=== PATIENT | male | born 1970 | race Caucasian/White ===

== ENCOUNTER 2016-05-20 09:05 | Inpatient (IN) | payer OTHER ==
[2016-05-20] MEDS ORDERED: diphenhydrAMINE 50 MG/ML 1 ML VIAL ONE (09:36)
[2016-05-20] MEDS ORDERED: fentaNYL (PF) 50 MCG/ML 2 ML AMP ONE (09:36)
[2016-05-20] MEDS ORDERED: HEPARIN SODIUM 1,000 UNIT/ML VIAL ONE (09:36)
[2016-05-20] MEDS ORDERED: VERAPAMIL 2.5 MG/ML 2 ML AMP ONE (09:36)
[2016-05-20] MEDS ORDERED: SODIUM CHLORIDE 0.9% (PF) 10 ML VIAL ONE (09:36)
[2016-05-20] MEDS ORDERED: SODIUM CHLORIDE 0.9% 1,000 ML IV ONE (09:40)
[2016-05-20] MEDS ORDERED: LIDOCAINE 2% INJ 20 MG/ML SQ ONE (09:45)
[2016-05-20] MEDS ORDERED: diphenhydrAMINE 50 MG/ML 1 ML VIAL IVP ONE (09:46)
[2016-05-20] MEDS ORDERED: BIVALIRUDIN BOLUS 250 MG/50 ML IV ONE (09:48)
[2016-05-20] MEDS ORDERED: VERAPAMIL SYRINGE (5 MG/10 ML) INTRAARTER ONE (09:50)
[2016-05-20] MEDS ORDERED: PRASUGREL 10 MG TAB ONE (09:50)
[2016-05-20] MEDS ORDERED: BIVALIRUDIN 250 MG in SODIUM CHLORIDE 0.9% 50 ML IV ONE (09:50)
[2016-05-20] MEDS ORDERED: PRASUGREL 10 MG TAB PO ONE (09:50)
[2016-05-20] MEDS ORDERED: fentaNYL (PF) 50 MCG/ML 2 ML AMP IV ONE (09:50)
--- NOTE | 2016-05-20 10:16 | CONS ---
DATE OF CONSULTATION: Mr. Mendez is a 45-year-old male with history of chronic tobacco use, a prior history of smoking, who presented to the emergency room at [facility] with symptoms of chest discomfort. The discomfort woke him up from sleep around 4:00 and reoccurred quite severe on presentation. On presentation to the emergency room, his EKG was consistent with an acute inferior myocardial infarction. In view of that, he was transferred to [facility] to undergo cardiac catheterization. Patient has no prior cardiac history. He is usually active physically. He has no exertional chest pain. He has no dizziness. No palpitation. No syncope. No PND, orthopnea nor peripheral edema. His coronary risk factors are remarkable for chronic tobacco use and a prior history of hypertension. MEDICATIONS: None. SOCIAL HISTORY: He drinks alcohol once a week. Smokes. REVIEW OF SYSTEMS: RESPIRATORY SYSTEM: No recent wheezing. No cough. No history of obstructive lung disease. GI SYSTEM: No recent GI bleeding. No peptic ulcer disease. SYSTEM: No dysuria or hematuria. PHYSICAL EXAMINATION: He is a 45-year-old male, alert, oriented, in no apparent distress. Blood pressure 140/70 with the heart rate in the 80s. HEAD: Normocephalic. EYES: Sclerae anicteric. NECK: Good upstroke. No bruit. No jugular venous distention. LUNGS: Clear to auscultation. HEART: Regular rate and rhythm. S1, S2, no S3, no rub or gallop. ABDOMEN: Soft, nontender, positive bowel sounds. No organomegaly. EXTREMITIES: No edema. EKG reveals sinus mechanism with ST segment elevation in inferior leads with ST segment depression in lead I and aVL and mild depression in lead V2. IMPRESSION: 1. Acute inferior myocardial infarction, ST elevation. 2. Hypertension in the past. 3.History of smoking. RECOMMENDATIONS: I recommend proceeding with coronary angiography and coronary angioplasty and stenting as needed. Those findings and recommendations were discussed with the patient who is in full understanding and agreement. Thank you for this consult. We will follow with you. ANA PAULA
[2016-05-20] MEDS ORDERED: IODIXANOL 320 MG/ML 100 ML INTRAARTER ONE (10:20)
[2016-05-20] MEDS ORDERED: ATROPINE SULFATE 0.1 MG/ML 10ML SYRINGE IV PRN (10:28)
[2016-05-20] MEDS ORDERED: MAG HYDROX/AL HYDROX/SIMETH 30 ML CUP PO PRN (10:28)
[2016-05-20] MEDS ORDERED: NITROGLYCERIN SL TABS 0.4 MG TAB SUBLINGUAL PRN (10:28)
[2016-05-20] MEDS ORDERED: ZOLPIDEM 5 MG TAB PO PRN (10:28)
[2016-05-20] MEDS ORDERED: RX INFO: IV CONTRAST WAS GIVEN 1 EACH MISC MISCELLANE PRN (10:28)
[2016-05-20] MEDS ORDERED: SODIUM CHLORIDE 0.9% 1,000 ML IV SCH (10:30)
[2016-05-20 10:45] LABS: Glucose,Whole Blood 102 mg/dL (75-99)
[2016-05-20] MEDS ORDERED: METOPROLOL TARTRATE 25 MG TAB PO SCH (10:45)
[2016-05-20] MEDS: LISINOPRIL 5 MG TAB PO SCH ×2 (10:59→20:50)
[2016-05-20 11:37] VITALS: BMI 31.3
[2016-05-20] MEDS ORDERED: METOPROLOL TARTRATE 25 MG TAB PO STA (12:43)
[2016-05-20] MEDS ORDERED: DEXTROSE 5% IN WATER 250 ML with AMIODARONE 300 MG IV ONE (15:00)
[2016-05-20] MEDS ORDERED: Magnesium Replacement Protocol 1 EACH MISC MISCELLANE PRN (15:44)
[2016-05-20] MEDS: MAGNESIUM SULFATE-D5W PMX 1 GM in DEXTROSE/WATER 1 100ML.BAG IVPB SCH ×2 (16:16→18:12)
--- NOTE | 2016-05-20 16:44 | HP ---
DATE OF ADMISSION: 05/20/2016 PRESENTING COMPLAINT: Chest pain. HISTORY OF PRESENTING COMPLAINT: This is a 45-year-old patient of Dr. Kerns who has a prior history of hypertension but did well with that control, went off medications. Had a ( ) this morning presented with central chest pressure, lasted about two hours. There was some shortness of breath, perspiration, then went back to sleep, got up again and the pain kept again. The patient became pale this time, getting short of breath, perspiration and dizzy. The patient presented to [facility] ER. The patient found to have ST elevation myocardial infarction and transferred down here. Taken to the cardiac clinical laboratory medical director by Dr. Harvey. Two stents to the right coronary artery were placed. Patient currently symptom free. The patient had some runs of whit may look like possible the shorter runs of V. tach versus atrial fibrillation. Awaiting Dr. Farrar did see the patient this morning. Family at the bedside. REVIEW OF SYSTEMS: CONSTITUTIONAL: Tired. HEENT: None. RESPIRATORY: None. CARDIOVASCULAR: As above. GASTROINTESTINAL: None. GENITOURINARY: None. MUSCULOSKELETAL: None. Dermatologic: None. HEMATOLOGIC: None. LYMPHATIC: None. PSYCHIATRY: None. NEUROLOGICAL: None. PAST MEDICAL HISTORY: Past medical history of hypertension. PAST SURGICAL HISTORY: Appendectomy, and nasal septal surgery. SOCIAL HISTORY: The patient is a ( ) at [employer]. Smokes sometimes. Drinks about 12 beers a week. . FAMILY HISTORY: Diabetes and hypertension. HOME MEDICATIONS: None. ALLERGIES: None. On examination, temperature 98.1, pulse 91%, respiratory rate 25, blood pressure 156/107, pulse ox 98% on 2 liters. GENERAL APPEARANCE: Average build, sitting up, comfortable. EYES: Pupils equal. Conjunctivae normal. HEENT: External appearance of nose and ears normal. Oral cavity normal. NECK: JVD not raised. Mass not palpable. RESPIRATORY: Effort normal. Lungs are clear. CARDIOVASCULAR: First and second sounds normal. No edema. ABDOMEN: Soft, nontender. Liver and spleen not palpable. LYMPHATIC: No lymph nodes palpable in neck or axillae. PSYCHIATRY: Alert and oriented x3. Mood and affect normal. NEUROLOGICAL: Pupils equal. Cranial nerves grossly intact. Power and sensation grossly intact. INVESTIGATIONS: Glucose 102. ASSESSMENT: 1. Acute ST elevation myocardial infarction 2. Emergent cardiac catheterization with two stents to the RCA. 3. Essential hypertension, uncontrolled. 4. Possible paroxysmal atrial fibrillation. PLAN: Patient to continue aspirin and Lipitor, Amidarone, Zestril, Lopressor, Effient. Care was discussed with the patient. Questions were answered. Follow with cardiology.
--- NOTE | 2016-05-20 19:24 | CC ---
Mr. Mendez is a 45-year-old male with known history of chronic tobacco use, prior history of smoking, who presented to [facility] with an acute inferior myocardial infarction. He was transferred to [facility] and recommendation made regarding cardiac catheterization and coronary angioplasty and stenting if needed. The procedure as well as the risks and complications were discussed with the patient, who is in full understanding and agreement. PROCEDURE: Patient was brought to the slab tripper. Using Xylocaine anesthesia and Seldinger technique, a 6 British sheath was introduced in the right radial artery. A right coronary angiography was performed using 6 British 4 bend right Darion guiding catheter. After obtaining images of the right coronary artery and performing angioplasty and stenting, images of the left coronary system using a 5 British 3-1/2 Bend left Darion catheter was used. Following that, a 5 British tight pigtail catheter was introduced in the left ventricle and a 30 degree THOMAS view of the left ventricle was obtained. Following that, catheter and sheaths were removed. Hemostasis was obtained with a ( ) TR band. There were no immediate complications. Patient was returned to his room in stable condition. Of note, the patient received intra-arterial verapamil. FINDINGS: Left main: This is a short-sized vessel bifurcating into left circumflex and left anterior descending artery. Left main coronary artery is without any significant obstructive coronary artery disease. Left anterior descending artery: This is a large-size vessel reaching toward the apex with a wraparound apex segment. The left anterior descending artery gives rise to a large obtuse marginal branch in mid segment. After takeoff of the obtuse marginal branch, there is a 20% plaque. The rest of the vessel has no high-grade stenosis. Left circumflex: This is a nondominant vessel, large in caliber, giving rise to 2 obtuse marginal branches. The left circumflex as well as its branches has no evidence of obstructive coronary artery disease. Right coronary artery: This is a large dominant vessel, bifurcating distally into PDA and posterolateral segment and branches. The right coronary artery proximally has a 99% stenosis. There is a long segment of plaque and evidence of intracoronary thrombus. The PLV has a 40% to 50% plaque. The rest of the vessel has no high-grade stenosis. LEFT VENTRICULOGRAM: Left ventriculogram was performed in 30 degree THOMAS view and revealed mild inferior wall hypokinesis. The estimated ejection fraction 50%. There was no significant mitral regurgitation. HEMODYNAMICS: There was no gradient across the aortic valve. The left ventricular end-diastolic pressure was 16 to 18 mmHg. CONCLUSIONS: 1. 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 2. Mild disease in the mid left anterior descending. 3. Minimally impaired left ventricular systolic function. RECOMMENDATIONS: In view findings and anatomy, I have recommended undergo angioplasty and stenting of the right coronary artery. The procedure as well as risks and complications were discussed with the patient, who is in full understanding and agreement.
--- NOTE | 2016-05-20 19:35 | PTCA ---
Mr. Mendez is a 45-year-old male with no prior documented history of coronary artery disease, who presented to the emergency room at [facility] with an acute inferior myocardial infarction, underwent cardiac catheterization, was found to have a critical stenosis involving a long segment of the proximal right coronary artery. In view of that, recommendation was made regarding angioplasty and stenting. The procedure as well as the risks and complications were discussed with the patient, who is in full understanding and agreement. PROCEDURE: Using the 6 Marshallese FR4 guiding catheter after obtaining images of the right coronary artery, a 0.014 balanced medium weight J-wire was advanced across the lesion, positioned distally. Following that, a thrombectomy [place] catheter was introduced. One run was performed. Following that and after removing the catheter, a 3.5 x 28 mm Xience Alpine stent was deployed, postdilated at 14 atmospheres. After removing the balloon, a 4.0 x 12 mm Xience Alpine stent was deployed proximal to the first one, postdilated at 14 atmospheres. Following that, an inflation with the same balloon in the first stent was performed at a maximum of 12 atmospheres. After the last inflation, after appropriate wait, the balloon and the guidewire were withdrawn back in the guiding catheter. Images were obtained and repeated. Those images reveal stable successful stenting. At that point, the guiding catheter, the balloon and the guidewire wire were removed. Images of the left coronary system and left ventriculogram were performed. Following that, catheter and sheaths were removed. Hemostasis was obtained with deployment of a TR band. There were no immediate complications. Patient is returned to his room in stable condition. Of note, the patient received Angiomax per protocol as well as oral loading dose of Effient. He had no chest discomfort at the end of the procedure and his EKG changes have returned to baseline. RESULT: Successful stenting of the long segment of the proximal right coronary artery with reduction in stenosis from 99% to 0%. RECOMMENDATION: Patient will be continued on aspirin and Plavix, Effient, beta sarabjit, BHAVANI inhibitor and statin. The importance of dual antiplatelet treatment as well as smoking cessation was discussed with the patient and his family, who are in full understanding and agreement.
--- NOTE | 2016-05-20 19:37 | LTR ---
May 20, 2016 RE: Thang Mendez Dear Dr. Kerns: I had the pleasure of performing cardiac catheterization with coronary angioplasty and stenting on Mr. Mendez at [facility] on the 20 of May and a full copy of the procedure note will be forwarded to you. In brief, he was found to have subtotally occluded proximal right coronary artery and underwent successful stenting of that vessel using a drug-eluting stent. I am hopeful that this procedure will stabilize his status and thank you again for allowing me to participate in his care. Please feel free to call for any questions. Sincerely yours, MATTHEW DUVAL MD
[2016-05-20] MEDS: ATORVASTATIN 80 MG TAB PO SCH (20:50)
[2016-05-20] MEDS: METOPROLOL TARTRATE 50 MG TAB PO SCH (20:50)
[2016-05-21 04:53] LABS: Anion Gap 8 mmol/L; Blood Urea Nitrogen 11 mg/dL (9-20); Calcium 8.7 mg/dL (8.4-10.2); Carbon Dioxide 23 mmol/L (22-30); Chloride 108 mmol/L (98-107); Cholesterol 219 mg/dL (<200); Glucose 98 mg/dL (74-99); HDL Cholesterol 43 mg/dL (40-60); Magnesium 2.1 mg/dL (1.6-2.3); Non-African American GFR(MDRD) >60 (>60 ml/min/1.73 sqM); Potassium 4.3 mmol/L (3.5-5.1); Sodium 139 mmol/L (137-145); Triglycerides 382 mg/dL (<150)
[2016-05-21] MEDS: ASPIRIN 81 MG CHEW PO SCH (08:09)
[2016-05-21] MEDS: LISINOPRIL 5 MG TAB PO SCH (08:09)
[2016-05-21] MEDS: PRASUGREL 10 MG TAB PO SCH (08:09)
[2016-05-21] MEDS: METOPROLOL TARTRATE 50 MG TAB PO SCH (08:09)
[2016-05-21] MEDS ORDERED: LISINOPRIL 5 MG TAB PO STA (08:44)
[2016-05-21] MEDS ORDERED: METOPROLOL TARTRATE 25 MG TAB PO STA (08:46)
[2016-05-21] MEDS ORDERED: CARVEDILOL 6.25 MG TAB PO STA (14:13)
--- NOTE | 2016-05-21 15:52 | PN ---
Mr. Mendez is a 45-year-old male patient who was admitted with an acute myocardial infarction yesterday at [facility] and then subsequently transferred here with inferior wall MS and he underwent coronary stenting by Dr. Harvey. There was a subtotally occluded proximal RCA and it was a fairly long segment of disease. There was mild disease in the mid LAD and a minimally impaired LV systolic function. Coronary stenting was performed with a Xience stent. Subsequently, when he is doing fairly well. Yesterday, he had a long run of nonsustained ventricular tachycardia. He received 300 mg of IV amiodarone, but none subsequently. We have been increasing his beta blockers since then. He is resting comfortably in bed. He has no headache. No blurring of vision. No chest discomfort. No shortness of breath. His blood pressure is elevated, but ( ) his diastolic blood pressure and despite that we have been going up on his medications. He does have a history of hypertension. Head and neck examination is normal. Heart sounds S1, S2 are normal. No murmurs, no gallop, no rub. Breath sounds are normal. No rhonchi. No crackles. Extremities are warm. No edema. IMPRESSION: 1. Acute inferior wall myocardial infarction, status post coronary stenting to the proximal right coronary artery. 2. Hypertension, systolic as well as diastolic. 3. History of smoking. SUGGEST: Switch from metoprolol to carvedilol 12.5 mg twice daily. I will give him an extra dose of 6.25 mg at this time. Continue lisinopril 10 mg b.i.d. Continue Effient, aspirin and atorvastatin. No more amiodarone for now. He has not had any further ventricular arrhythmias.
[2016-05-21] MEDS ORDERED: LISINOPRIL 10 MG TAB PO STA (16:40)
[2016-05-21] MEDS: ATORVASTATIN 80 MG TAB PO SCH (20:17)
[2016-05-21] MEDS: CARVEDILOL 12.5 MG TAB PO SCH (20:18)
[2016-05-21] MEDS: LISINOPRIL 20 MG TAB PO SCH (20:18)
[2016-05-21] MEDS ORDERED: METOPROLOL TARTRATE 25 MG TAB PO SCH (21:00)
[2016-05-21] MEDS ORDERED: LISINOPRIL 10 MG TAB PO SCH (21:00)
[2016-05-22 04:47] LABS: Basophils % (A) 1 %; CH 31.6; Eosinophils # (A) 0.1 k/uL (0-0.7); Eosinophils % (A) 2 %; HCT 47.2 % (39.0-53.0); HDW 2.66; HGB 15.9 gm/dL (13.0-17.5); Luc # (Auto) 0.15; Luc % (Auto) 2; Lymphocytes # (A) 2.6 k/uL (1.0-4.8); Lymphocytes % (A) 32 %; MCH 30.4 pg (25.0-35.0); MCHC 33.6 g/dL (31.0-37.0); MCV 90.6 fL (80.0-100.0); Mean Platelet Volume 7.8; Monocytes # (A) 0.5 k/uL (0-1.0); Monocytes % (A) 6 %; Neutrophils # (A) 4.7 k/uL (1.3-7.7); Neutrophils % (A) 58 %; RBC 5.21 m/uL (4.30-5.90); RDW 12.9 % (11.5-15.5); WBC 8.1 k/uL (3.8-10.6); WBC (Perox) 7.97
[2016-05-22 05:03] LABS: Anion Gap 11 mmol/L; Blood Urea Nitrogen 13 mg/dL (9-20); Calcium 8.8 mg/dL (8.4-10.2); Carbon Dioxide 22 mmol/L (22-30); Chloride 107 mmol/L (98-107); Glucose 95 mg/dL (74-99); Non-African American GFR(MDRD) >60 (>60 ml/min/1.73 sqM); Potassium 4.2 mmol/L (3.5-5.1); Sodium 140 mmol/L (137-145)
[2016-05-22] MEDS: ASPIRIN 81 MG CHEW PO SCH (08:31)
[2016-05-22] MEDS: LISINOPRIL 20 MG TAB PO SCH (08:31)
[2016-05-22] MEDS: PRASUGREL 10 MG TAB PO SCH (08:31)
[2016-05-22] MEDS: CARVEDILOL 12.5 MG TAB PO SCH (08:31)
--- NOTE | 2016-05-22 10:36 | ECHOF ---
Referral Reason:or MEASUREMENTS -------- HEIGHT: 188.0 cm WEIGHT: 108.0 kg BP: 123/81 RVIDd: 2.7 cm (< 3.3) IVSd: 1.2 cm (0.6 - 1.1) LVIDd: 4.8 cm (3.9 - 5.3) LVPWd: 1.2 cm (0.6 - 1.1) IVSs: 1.8 cm LVIDs: 3.0 cm LVPWs: 1.6 cm LA Diam: 3.7 cm (2.7 - 3.8) Ao Diam: 3.9 cm (2.0 - 3.7) AV Cusp: 2.4 cm (1.5 - 2.6) MV EXCURSION: 19.783 mm (> 18.000) MV EF SLOPE: 79 mm/s (70 - 150) EPSS: 0.3 cm MV E Dax: 0.81 m/s MV DecT: 188 ms MV A Dax: 0.76 m/s MV E/A Ratio: 1.05 FINDINGS -------- Sinus rhythm. This was a technically good study. The left ventricular size is normal. There is borderline concentric left ventricular hypertrophy. Overall left ventricular systolic function is normal with, an EF between 60 - 65 %. The right ventricle is normal in size and function. The left atrium is normal in size. The right atrium is normal in size. The aortic valve is trileaflet and appears structurally normal. Normal appearing mitral valve. No mitral regurgitation. The tricuspid valve appears structurally normal. No regurgitation noted The pulmonic valve is normal. There is no pulmonic regurgitation present. The aortic root is dilated measuring 3.9cm. Normal inferior vena cava with normal inspiratory collapse consistent with estimated right atrial pressure of 5 mmHg. There is no pericardial effusion. CONCLUSIONS -------- 1. Sinus rhythm. 2. Normal appearing mitral valve. 3. The tricuspid valve appears structurally normal. 4. The pulmonic valve is normal. 5. The aortic root is dilated measuring 3.9cm. 6. Normal inferior vena cava with normal inspiratory collapse consistent with estimated right atrial pressure of 5 mmHg. 7. There is no pericardial effusion. 8. This was a technically good study. 9. The left ventricular size is normal. 10. There is borderline concentric left ventricular hypertrophy. 11. Overall left ventricular systolic function is normal with, an EF between 60 - 65 %. 12. The right ventricle is normal in size and function. 13. The left atrium is normal in size. 14. The right atrium is normal in size. 15. The aortic valve is trileaflet and appears structurally normal. PONY ROUGHER: Jannet Granados RDCS
--- NOTE | 2016-05-22 12:02 | PN ---
DATE OF SERVICE: 05/21/2016 PRESENTING COMPLAINT: Chest pain. INTERVAL HISTORY: This patient presented with acute ST elevation myocardial infarction with intervention of the RCA, blood pressure is running high. Dr. Farrar is adjusting the medications. No chest pain, short of breath. Family is at the bedside. Patient was admitted to the ICU, from the 6 East floor. Review of systems done for constitutional, cardiovascular, GI, pulmonary; relevant findings as above. Current medications are reviewed and include Coreg 12.5 b.i.d., Zestril 20 mg b.i.d. On examination, temperature 97.7, pulse 73, respirations 14, blood pressure 150/91, pulse ox 98% on room air. GENERAL APPEARANCE: Lying in bed, comfortable. EYES: Pupils equal. Conjunctivae normal. NECK: JVD not raised. Mass not palpable. Respiratory effort normal. Lungs are clear. CARDIOVASCULAR: First and second sounds normal. No edema. ABDOMEN: Soft, nontender. Liver and spleen not palpable. PSYCHIATRY: Alert and oriented x3. Mood and affect normal. INVESTIGATIONS: LDL is 100. ASSESSMENT: 1. Acute ST-elevation myocardial infarction of the inferior wall. 2. Emergent cardiac catheterization with two stents to the right coronary artery. 3. Essential hypertension, uncontrolled. 4. Runs of ventricular tachycardia, not atrial fibrillation per Cardiology. 5. Hyperlipidemia, uncontrolled. PLAN: Medications were adjusted. Care was discussed with the patient and family at the bedside. Will follow.
[2016-05-22 12:42] VITALS: TEMP 98.6
[2016-05-22 17:14] VITALS: BP 178/108
--- NOTE | 2016-05-22 17:19 | PN ---
Thang is doing very well this morning. He has no headache, no chest pain, no dizziness, lightheadedness or palpitations. His blood pressure is a lot better than yesterday, although it is still not completely under control. But now he is on carvedilol and lisinopril. His blood pressure was 123/81 mmHg and 157/99 mmHg. His heart rate is normal in the 80s. His respirations are normal. Heart sounds S1, S2 are normal. No murmurs. No gallop. Breath sounds are normal. No rhonchi. No crackles. Abdomen is soft, nontender. Extremities are warm. No edema. His medication list includes: 1. Aspirin. 2. Atorvastatin. 3. Carvedilol 12.5 mg twice daily. 4. Lisinopril 20 mg twice daily. 5. Effient. He will be discharged home today. He will follow with Dr. Harvey this week. FINAL IMPRESSION: 1. Acute inferior wall myocardial infarction, status post stenting. 2. Hypertension. He will see Dr. Harvey this week ( ) his blood pressure is elevated, hydrochlorothiazide will be added to his current regimen.
[2016-05-22 17:40] VITALS: RESP 19
[2016-05-22 17:45] VITALS: PULSE 84
--- NOTE | 2016-05-23 10:47 | DS ---
DATE OF ADMISSION: 05/20/2016 DATE OF DISCHARGE: 05/22/2016 FINAL DIAGNOSES: 1. Acute ST-elevation myocardial infarction of the inferior wall. 2. Essential hypertension, uncontrolled. 3. Paroxysmal ventricular tachycardia. 4. Hyperlipidemia, uncontrolled. 5. Hypertensive heart disease; ejection fraction 60% to 65%. HOSPITAL COURSE: This patient presented with acute AL, doing better at the time of discharge, up and about, symptoms are controlled. Patient's LDL came back at 100. A 2-D echo showed preserved LV function. Dr. Harvey did the coronary intervention with stenting of the proximal RCA. When last examined, lungs are clear. CARDIOVASCULAR: First and second sounds normal. DISCHARGE MEDICATIONS: 1. Aspirin 81 mg a day. 2. Lipitor 80 mg q.h.s. 3. Coreg 12.5 p.o. b.i.d. 4. Zestril 20 mg b.i.d. 5. Nitrostat 0.4 sublingual q.5 p.r.n. 6. Effient 10 mg a day. Follow up with Dr. Harvey in one week; follow up with Dr. Kerns in one week.
== END 2016-05-22 17:58 | disposition home or self-care (01) | DRG 247 ==
LOC: 6SEL 09:22 → 6ICU 10:19
PROVIDERS: ADMIT Internal Medicine Interventional Cardiology; ATTEND Hospitalist
PROC: B2111ZZ Fluoroscopy of Multiple Coronary Arteries using Low Osmolar Contrast (ICD-10-PCS; principal; 2016-05-20 09:32)
PROC: 4A023N7 Measurement of Cardiac Sampling and Pressure, Left Heart, Percutaneous Approach (ICD-10-PCS; principal; 2016-05-20 09:32)
PROC: B2151ZZ Fluoroscopy of Left Heart using Low Osmolar Contrast (ICD-10-PCS; principal; 2016-05-20 09:32)
PROC: 027034Z Dilation of Coronary Artery, One Artery with Drug-eluting Intraluminal Device, Percutaneous Approach (ICD-10-PCS; 2016-05-20 09:32)
PROC: 02C03ZZ Extirpation of Matter from Coronary Artery, One Artery, Percutaneous Approach (ICD-10-PCS; 2016-05-20 09:32)
DX: I21.19 ST elevation (STEMI) myocardial infarction involving other coronary artery of inferior wall (principal); I47.2 Ventricular tachycardia; I11.9 Hypertensive heart disease without heart failure; E78.5 Hyperlipidemia, unspecified; Z79.899 Other long term (current) drug therapy; Z82.49 Family history of ischemic heart disease and other diseases of the circulatory system; I25.10 Atherosclerotic heart disease of native coronary artery without angina pectoris; F17.200 Nicotine dependence, unspecified, uncomplicated
CPT/HCPCS: 80048; 80061; 83735; 84484; 85025; 85347; 93306; 93458

== ENCOUNTER 2016-10-06 06:02 | Emergency (ER) | payer OTHER ==
[2016-10-06] MEDS ORDERED: MORPHINE SULFATE 4 MG/ML SYRINGE IVP STA (06:14)
[2016-10-06] MEDS ORDERED: KETOROLAC 30 MG/ML 1 ML VIAL IVP STA (06:14)
[2016-10-06] MEDS ORDERED: SODIUM CHLORIDE 0.9% 1,000 ML IV ONE (06:14)
[2016-10-06 06:45] LABS: Basophils % (A) 0 %; CH 32.4; CHCM 34.6; Eosinophils # (A) 0.2 k/uL (0-0.7); Eosinophils % (A) 1 %; HCT 51.2 % (39.0-53.0); HDW 2.51; HGB 17.1 gm/dL (13.0-17.5); Luc # (Auto) 0.13; Luc % (Auto) 1; Lymphocytes # (A) 1.8 k/uL (1.0-4.8); Lymphocytes % (A) 17 %; MCH 31.4 pg (25.0-35.0); MCHC 33.4 g/dL (31.0-37.0); Mean Platelet Volume 7.8; Monocytes # (A) 0.5 k/uL (0-1.0); Monocytes % (A) 5 %; Neutrophils # (A) 8.2 k/uL (1.3-7.7); Neutrophils % (A) 76 %; RBC 5.45 m/uL (4.30-5.90); WBC 10.9 k/uL (3.8-10.6); WBC (Perox) 10.62
--- NOTE | 2016-10-06 06:51 | ED ---
Abdominal Pain HPI - General Source: patient Mode of arrival: ambulatory Limitations: no limitations <Derick Delcid - Last Filed: 10/06/16 07:03> <Hector Javed - Last Filed: 10/06/16 08:50> - General Chief Complaint: Abdominal Pain Stated Complaint: abd pain Time Seen by Provider: 10/06/16 06:09 - History of Present Illness Initial Comments: This is a 46-year-old male with a history of STEMI who presents emergency department for left lower quadrant and left flank pain. He states that it started when he woke up this morning and gradually worsened. He states the pain is severe. He has never had anything like it before. He does have some nausea however no vomiting. No diarrhea. He denies history kidney stones. Nothing seems to make it better or worse. It is constant. (Derick Delcid) - Related Data Home Medications Medication Instructions Recorded Confirmed Prasugrel [Effient] 10 mg PO HS 10/06/16 10/06/16 Previous Rx's Medication Instructions Recorded Aspirin 81 mg PO DAILY #30 chew 05/22/16 Atorvastatin [Lipitor] 80 mg PO HS #30 tab 05/22/16 Carvedilol [Coreg*] 12.5 mg PO BID #60 tab 05/22/16 Nitroglycerin Sl Tabs [Nitrostat] 0.4 mg SUBLINGUAL Q5M PRN #25 tab 05/22/16 Hydrocodone/Acetaminophen [Pigeon 2 each PO Q6HR PRN #20 tab 10/06/16 5-325] Metoclopramide HCl [Reglan] 10 mg PO Q6HR PRN #15 tablet 10/06/16 Tamsulosin [Flomax] 0.4 mg PO DAILY #7 cap 10/06/16 Allergies Allergy/AdvReac Type Severity Reaction Status Date / Time No Known Allergies Allergy Verified 10/06/16 07:26 Review of Systems ROS Other: All systems not noted in ROS Statement are negative. <Derick Delcid - Last Filed: 10/06/16 07:03> ROS Other: All systems not noted in ROS Statement are negative. <Hector Javed - Last Filed: 10/06/16 08:50> ROS Statement: Those systems with pertinent positive or pertinent negative responses have been documented in the HPI. Past Medical History Past Medical History: Coronary Artery Disease (CAD), Chest Pain / Angina, Hypertension, Myocardial Infarction ([place]) Last Myocardial Infarction Date:: 05/20/16 History of Any Multi-Drug Resistant Organisms: None Reported Past Surgical History: Appendectomy, Heart Catheterization, Heart Catheterization With Stent, Orthopedic Surgery Additional Past Surgical History / Comment(s): nasal septal surgery Past Anesthesia/Blood Transfusion Reactions: No Reported Reaction Date of Last Stent Placement:: 05/20/16 Past Psychological History: No Psychological Hx Reported Smoking Status: Light tobacco smoker - Past Family History Father History Unknown: Yes Family Medical History: Diabetes Mellitus, Hypertension <Derick Delcid - Last Filed: 10/06/16 07:03> General Exam Limitations: no limitations <Derick Delcid - Last Filed: 10/06/16 07:03> <Hector Javed - Last Filed: 10/06/16 08:50> - General Exam Comments Initial Comments: Constitutional: Awake alert appears uncomfortable Head: Normocephalic atraumatic Eyes: no conjunctival injection No scleral icterus EOMI Neck: No JVD Supple Heart: Regular rate rhythm normal S1-S2 no murmurs Lungs: Clear to auscultation bilaterally No wheezing No rales Abdomen: Soft nondistended tenderness to palpation the left lower quadrant Extremities: Non edematous DP pulses intact Radial pulses intact Neuro: A&Ox3 No focal neurologic deficits Psych: Appropriate mood and affect (Derick Delcid) Course <Derick Delcid - Last Filed: 10/06/16 07:03> <Hector Javed - Last Filed: 10/06/16 08:50> Vital Signs 10/06/16 10/06/16 10/06/16 06:09 06:44 07:13 Temperature 97.7 F 98 F Pulse Rate 77 64 83 Respiratory 18 16 18 Rate Blood Pressure 201/123 193/114 177/121 O2 Sat by Pulse 100 100 99 Oximetry 10/06/16 10/06/16 07:37 08:00 Temperature Pulse Rate 75 80 Respiratory 18 18 Rate Blood Pressure 158/105 164/111 O2 Sat by Pulse 99 97 Oximetry - Reevaluation(s) Reevaluation #1: 10/06/16 06:50 EKG showing normal sinus rhythm with rate of 63. No abnormal ST segment changes or T-wave inversions. QTC is 417. Other intervals are normal. No ectopy. (Dreick Delcid) Medical Decision Making - Lab Data Result diagrams: 10/06/16 06:35 <Derick Delcid - Last Filed: 10/06/16 07:03> - Lab Data Result diagrams: 10/06/16 06:35 10/06/16 06:35 - Radiology Data Radiology results: report reviewed (Computed tomography scan of the abdomen and pelvis shows 0.6 cm left mid ureter stone with mild hydronephrosis and hydroureter.) <Hector Javed - Last Filed: 10/06/16 08:50> - Medical Decision Making Pts care transitioned to Dr. Javed (Derick Delcid) Patient reexamined and improved. Patient updated on results and need for follow -up. Blood pressure is also improved. (Hector Javed) - Lab Data Lab Results 10/06/16 10/06/16 10/06/16 Range/Units 06:35 06:35 07:15 WBC 10.9 H (3.8-10.6) k/uL RBC 5.45 (4.30-5.90) m/uL Hgb 17.1 (13.0-17.5) gm/dL Hct 51.2 (39.0-53.0) % MCV 94.0 (80.0-100.0) fL MCH 31.4 (25.0-35.0) pg MCHC 33.4 (31.0-37.0) g/dL RDW 13.0 (11.5-15.5) % Plt Count 221 (150-450) k/uL Neutrophils % 76 % Lymphocytes % 17 % Monocytes % 5 % Eosinophils % 1 % Basophils % 0 % Neutrophils # 8.2 H (1.3-7.7) k/uL Lymphocytes # 1.8 (1.0-4.8) k/uL Monocytes # 0.5 (0-1.0) k/uL Eosinophils # 0.2 (0-0.7) k/uL Basophils # 0.0 (0-0.2) k/uL Sodium 143 (137-145) mmol/L Potassium 4.6 (3.5-5.1) mmol/L Chloride 109 H (98-107) mmol/L Carbon Dioxide 22 (22-30) mmol/L Anion Gap 12 mmol/L BUN 23 H (9-20) mg/dL Creatinine 0.98 (0.66-1.25) mg/dL Est GFR (MDRD) Af Amer >60 (>60 ml/min/1.73 sqM) Est GFR (MDRD) Non-Af >60 (>60 ml/min/1.73 sqM) Glucose 105 H (74-99) mg/dL Calcium 9.3 (8.4-10.2) mg/dL Total Bilirubin 0.9 (0.2-1.3) mg/dL AST 30 (17-59) U/L ALT 51 (21-72) U/L Alkaline Phosphatase 49 (38-126) U/L Total Protein 7.9 (6.3-8.2) g/dL Albumin 4.7 (3.5-5.0) g/dL Urine Color Light Red Urine Appearance Cloudy (Clear) Urine pH 5.5 (5.0-8.0) Ur Specific [place] 1.020 (1.001-1.035) Urine Protein 1+ H (Negative) Urine Glucose (UA) Negative (Negative) Urine Ketones Negative (Negative) Urine Blood Large H (Negative) Urine Nitrite Negative (Negative) Urine Bilirubin Negative (Negative) Urine Urobilinogen <2.0 (<2.0) mg/dL Ur Leukocyte Esterase Negative (Negative) Urine RBC >182 H (0-5) /hpf Urine WBC 20 H (0-5) /hpf Urine Mucus Rare H (None) /hpf Disposition <Derick Delcid - Last Filed: 10/06/16 07:03> Time of Disposition: 08:46 <Hector Javed - Last Filed: 10/06/16 08:50> Clinical Impression: Ureterolithiasis Disposition: HOME SELF-CARE Condition: Stable Instructions: Kidney Stones (ED) Additional Instructions: Please follow-up with your primary care physician in the next couple days for recheck. Please also have your primary care physician reevaluate blood pressure. Return for uncontrolled pain, uncontrolled vomiting, fever, worsening symptoms or other concerns. Prescriptions: Hydrocodone/Acetaminophen [[place] 5-325] 2 each PO Q6HR PRN #20 tab PRN Reason: Pain Metoclopramide HCl [Reglan] 10 mg PO Q6HR PRN #15 tablet PRN Reason: Nausea Tamsulosin [Flomax] 0.4 mg PO DAILY #7 cap Referrals: Cavataio,Sean A, MD [Primary Care Provider] - 1-2 days
[2016-10-06 06:58] LABS: ALT 51 U/L (21-72); AST 30 U/L (17-59); Alkaline Phosphatase 49 U/L (38-126); Anion Gap 12 mmol/L; Blood Urea Nitrogen 23 mg/dL (9-20); Calcium 9.3 mg/dL (8.4-10.2); Carbon Dioxide 22 mmol/L (22-30); Chloride 109 mmol/L (98-107); Glucose 105 mg/dL (74-99); Non-African American GFR(MDRD) >60 (>60 ml/min/1.73 sqM); Potassium 4.6 mmol/L (3.5-5.1); Sodium 143 mmol/L (137-145); Total Bilirubin 0.9 mg/dL (0.2-1.3); Total Protein 7.9 g/dL (6.3-8.2)
[2016-10-06] MEDS ORDERED: ENALAPRILAT 1.25 MG/ML 1 ML VIAL IVP STA (07:17)
[2016-10-06 07:18] VITALS: RESP 18
--- NOTE | 2016-10-06 07:24 | CT ---
EXAMINATION TYPE: CT abdomen pelvis wo con DATE OF EXAM: 10/06/2016 COMPARISON: NONE INDICATION: LLQ flank pain DLP: 744 mGycm, Automated exposure control for dose reduction was used. CONTRAST: 0 mL of Omnipaque 300. Study performed without Oral Contrast TECHNIQUE: Axial images were obtained from above the diaphragm to the pubic rami in the axial plane a t 5 mm thick sections. Reconstructed images are reviewed on the computer in the coronal plane. FINDINGS: Limited CT sections are obtained the lung bases. The lung bases are clear. CT ABDOMEN: Liver: There is a 1.1 cm hypodensity within the inferior lateral right lobe liver. Spleen: Normal Pancreas: Normal Adrenal glands: The adrenal glands are normal. Gallbladder: Normal Kidneys: No masses are evident. There is mild left hydronephrosis and hydroureter. This extends to th e mid ureter. There is a 0.6 cm calcification within the mid left ureter. Series 3 image 99. No cysts are present. Aorta: Vascular calcification is within the aorta. Inferior vena cava: Normal. CT PELVIS: Loops of bowel within the abdomen and pelvis are normal. Appendix: Not identified. No suspicious inflammatory changes are evident. Urinary bladder: Normal. Genitourinary structures: Prostate contains calcification. Osseous structures: No suspicious lytic or sclerotic lesions. IMPRESSIONS: 1. 0.6 cm mid left ureteral stone with mild left hydronephrosis and hydroureter.
[2016-10-06 07:35] LABS: Appearance,Urine Cloudy (Clear); Bilirubin,Urine Negative (Negative); Glucose,Urine (UA) Negative (Negative); Ketones,Urine Negative (Negative); Leukocyte Esterase,Urine Negative (Negative); Mucus,Urine Rare /hpf; Nitrite,Urine Negative (Negative); PH, Urine 5.5 (5.0-8.0); Particle Count 11530; Protein,Urine 1+ (Negative); RBC,Urine >182 /hpf (0-5); UA Billing (MACRO vs. MICRO) MICRO; Urobilinogen,Urine <2.0 mg/dL (<2.0); WBC,Urine 20 /hpf (0-5)
[2016-10-06] MEDS ORDERED: CARVEDILOL 12.5 MG TAB PO STA (08:00)
[2016-10-06 08:48] VITALS: BP 154/97; PULSE 68; TEMP 98.3
== END 2016-10-06 09:01 | disposition home or self-care (01) ==
LOC: EC 06:02
DX: N20.1 Calculus of ureter (principal); I25.10 Atherosclerotic heart disease of native coronary artery without angina pectoris; I25.2 Old myocardial infarction; F17.200 Nicotine dependence, unspecified, uncomplicated; Z79.899 Other long term (current) drug therapy
CPT/HCPCS: 36415; 93005; 80053; 85025; 81001; 74176; 99284; 96374; 96375 ×2; 96361 ×2; J2270; J1885

== ENCOUNTER 2019-01-12 05:35 | Emergency (ER) | payer OTHER ==
[2019-01-12] MEDS ORDERED: IPRATROPIUM-ALBUTEROL 3 ML NEB INHALATION STA (05:47)
[2019-01-12] MEDS ORDERED: IBUPROFEN 600 MG TAB PO STA (05:47)
--- NOTE | 2019-01-12 05:52 | ED ---
URI HPI - General Chief Complaint: Upper Respiratory Infection Stated Complaint: Fever, congestion Time Seen by Provider: 01/12/19 05:40 Source: patient, RN notes reviewed Mode of arrival: ambulatory Limitations: no limitations - History of Present Illness Initial Comments: This a 48-year-old male presents emergency Department with chief complaint of fe leatha cough congestion. Patient states his started late Sunday into . Patient states that he felt better on Sunday but symptoms are worse in the last 24 hours. Patient states he has a white foamy cough. Patient states that he has no significant lung disease. Patient states that he just feels very achy all over he has had on-and-off fevers at home and she's been treating with Tylenol. Patient denies any ibuprofen recently. Last dose, 45 minutes ago. Patient denies any sick contacts. Patient denies sore throat, ear pain, neck pain or neck stiffness. Patient denies abdominal complaints of dysuria no hematuria. - Related Data Home Medications Medication Instructions Recorded Confirmed Prasugrel [Effient] 10 mg PO HS 10/06/16 10/06/16 Previous Rx's Medication Instructions Recorded Aspirin 81 mg PO DAILY #30 chew 05/22/16 Atorvastatin [Lipitor] 80 mg PO HS #30 tab 05/22/16 Carvedilol [Coreg*] 12.5 mg PO BID #60 tab 05/22/16 Nitroglycerin Sl Tabs [Nitrostat] 0.4 mg SUBLINGUAL Q5M PRN #25 tab 05/22/16 Hydrocodone/Acetaminophen [[place] 2 each PO Q6HR PRN #20 tab 10/06/16 5-325] Metoclopramide HCl [Reglan] 10 mg PO Q6HR PRN #15 tablet 10/06/16 Tamsulosin [Flomax] 0.4 mg PO DAILY #7 cap 10/06/16 Azithromycin [Zithromax Z-pack] 0 mg PO DIRECTED #1 pack 01/12/19 Allergies Allergy/AdvReac Type Severity Reaction Status Date / Time No Known Allergies Allergy Verified 10/06/16 07:26 Review of Systems ROS Statement: Those systems with pertinent positive or pertinent negative responses have been documented in the HPI. ROS Other: All systems not noted in ROS Statement are negative. Past Medical History Past Medical History: Coronary Artery Disease (CAD), Chest Pain / Angina, Hypertension, Myocardial Infarction ([place]) Last Myocardial Infarction Date:: 05/20/16 History of Any Multi-Drug Resistant Organisms: None Reported Past Surgical History: Appendectomy, Heart Catheterization, Heart Catheterization With Stent, Orthopedic Surgery Additional Past Surgical History / Comment(s): nasal septal surgery Past Anesthesia/Blood Transfusion Reactions: No Reported Reaction Date of Last Stent Placement:: 05/20/16 Past Psychological History: No Psychological Hx Reported Smoking Status: Light tobacco smoker - Past Family History Father History Unknown: Yes Family Medical History: Diabetes Mellitus, Hypertension General Exam General appearance: alert, in no apparent distress Head exam: Present: atraumatic, normocephalic, normal inspection Eye exam: Present: normal appearance, PERRL, EOMI. Absent: scleral icterus, conjunctival injection, periorbital swelling ENT exam: Present: normal exam, normal oropharynx, mucous membranes moist Neck exam: Present: normal inspection, full ROM. Absent: tenderness, meningismus, lymphadenopathy Respiratory exam: Present: wheezes (Left upper). Absent: normal lung sounds bilaterally, respiratory distress, rales, rhonchi, stridor Cardiovascular Exam: Present: normal rhythm, tachycardia, normal heart sounds. Absent: regular rate, systolic murmur, diastolic murmur, rubs, gallop, clicks GI/Abdominal exam: Present: soft, normal bowel sounds. Absent: distended, tenderness, guarding, rebound, rigid Neurological exam: Present: alert, oriented X3 Skin exam: Present: warm, dry, intact, normal color. Absent: rash Course Vital Signs 01/12/19 01/12/19 01/12/19 05:35 05:58 06:08 Temperature 100.8 F H Pulse Rate 115 H 112 H 112 H Respiratory 18 Rate Blood Pressure 118/80 O2 Sat by Pulse 98 Oximetry 01/12/19 01/12/19 06:35 06:41 Temperature 100.5 F H Pulse Rate 71 Respiratory 20 18 Rate Blood Pressure 110/81 O2 Sat by Pulse 96 Oximetry Medical Decision Making - Medical Decision Making 48-year-old male presented to [facility] for fever cough congestion not feeling well. Patient has left lower lobe pneumonia. Patient is given breathing treatment, ibuprofen emergency department. Patient feels improved he is given Rocephin will be discharged with azithromycin. - Lab Data Lab Results 01/12/19 Range/Units 05:52 Influenza Type A RNA Not Detected (Not Detectd) Influenza Type B (PCR) Not Detected (Not Detectd) Disposition Clinical Impression: Left lower lobe pneumonia Disposition: HOME SELF-CARE Condition: Stable Instructions (If sedation given, give patient instructions): Bacterial Pneumonia (ED) Additional Instructions: Please return to the Emergency Department if symptoms worsen or any other concerns. Prescriptions: Azithromycin [Zithromax Z-pack] 0 mg PO DIRECTED #1 pack Is patient prescribed a controlled substance at d/c from ED?: No Referrals: Sean Kerns MD [Primary Care Provider] - 1-2 days Time of Disposition: 07:05
--- NOTE | 2019-01-12 06:10 | XR ---
EXAM: XR Chest, 2 Views CLINICAL HISTORY: Fever and cough. TECHNIQUE: Frontal and lateral views of the chest. COMPARISON: None. FINDINGS: Lungs: Patchy airspace disease is noted at the left lower lobe which given the patient's history most likely represents left lower lobe pneumonia. Pleural space: Unremarkable. No pneumothorax. Heart: Cardiomediastinal silhouette is unremarkable. Mediastinum: See above. Bones/joints: Osseous structures are unremarkable. Other findings: There is mild hypoaeration. IMPRESSION: Probable left lower lobe pneumonia. Short-term follow-up imaging is advised to document resolution.
[2019-01-12 06:42] VITALS: BP 110/81; PULSE 71; RESP 18; TEMP 100.5
[2019-01-12] MEDS ORDERED: cefTRIAXone 1,000 MG VIAL (IM USE) IM STA (07:01)
== END 2019-01-12 07:26 | disposition home or self-care (01) ==
LOC: EC 05:35
DX: J18.9 Pneumonia, unspecified organism (principal); I25.119 Atherosclerotic heart disease of native coronary artery with unspecified angina pectoris; I10 Essential (primary) hypertension; I25.2 Old myocardial infarction; F17.210 Nicotine dependence, cigarettes, uncomplicated; Z95.5 Presence of coronary angioplasty implant and graft; Z79.82 Long term (current) use of aspirin; Z22.322 Carrier or suspected carrier of Methicillin resistant Staphylococcus aureus
CPT/HCPCS: 94640; 87502; 71046; 99284; J0696

== ENCOUNTER → 2019-09-23 | Outpatient (CLI) | payer OTHER ==
--- NOTE | 2019-09-24 08:56 | MR ---
EXAMINATION TYPE: MR foot RT wo con DATE OF EXAM: 09/23/2019 COMPARISON: NONE HISTORY: 49-year-old male M79.671. Pain on bottom of right foot near toes, lesion of plantar nerve. H allux rigidus right foot. TECHNIQUE: Multiplanar, multisequence images of the right foot were obtained without IV contrast. FINDINGS: There is severe degenerative change at the first MTP joint with associated joint effusion and promine nt bony spurring. Mild subcutaneous soft tissue swelling throughout the forefoot soft tissues. No acute fracture is identified. No well-defined mass lesion along the plantar soft tissues of the forefoot. No well-defined Dixon's neuroma is identified. Some dorsal degenerative spurring at the TMT and midfoot articulation. Achilles tendon is intact. Moderate-sized plantar calcaneal spur. Subtalar joint is aligned. Lisfranc ligament is visualized and intact. IMPRESSION: 1. Hallux rigidus with degenerative subchondral signal changes and associated joint effusion. 2. Mild nonspecific edema throughout the forefoot soft tissues. 3. Scattered mild midfoot OA.
== END | disposition home or self-care (01) ==
LOC: RADMRIMAIN 15:16
PROVIDERS: ATTEND Orthopaedic Surgery
DX: M20.21 Hallux rigidus, right foot (principal); M19.071 Primary osteoarthritis, right ankle and foot; M25.474 Effusion, right foot; G57.61 Lesion of plantar nerve, right lower limb; I51.9 Heart disease, unspecified; Z87.891 Personal history of nicotine dependence

== ENCOUNTER 2020-10-04 08:51 | Day surgery (SDC) | payer OTHER ==
[2020-09-30 13:53] VITALS: BMI 31.8
[~2020-10-04 08:51] MED LIST: LIDOCAINE 1% (10MG/ML) FOR IV START INTRADERMA PRN
[2020-10-04] MEDS: LACTATED RINGERS 1,000 ML IV SCH ×3 (09:00→11:30)
[2020-10-04] MEDS ORDERED: METOPROLOL TARTRATE 5 MG/5 ML VIAL IVP ONE (09:30)
[2020-10-04 09:35] VITALS: TEMP 98
[2020-10-04] MEDS ORDERED: PROPOFOL 10 MG/ML 20 ML VIAL IV ONE (09:55)
--- NOTE | 2020-10-04 10:30 | P.PCN ---
Date of Procedure: 10/04/20 Description of Procedure: BRIEF HISTORY: Patient is a 50-year-old male presents for outpatient colonoscopy for screening for malignant neoplasm of the colon. No prior colonoscopy. No change in bowel habits. He does report a family history of colon cancer in his father. PROCEDURE PERFORMED: Colonoscopy with polypectomy. PREOPERATIVE DIAGNOSIS: Screening for malignant neoplasm in the colon, no prior colonoscopy, family history of colon cancer in his father. ESTIMATED BLOOD LOSS: Minimal. IV sedation per Anesthesia. PROCEDURE: After informed consent was obtained, the patient, was brought into the endoscopy unit. IV sedation was administered by Anesthesia under continuous monitoring. Digital rectal examination was normal. Initially the Olympus CF-190 flexible video colonoscope was then inserted in the rectum, gradually advanced into the cecum without any difficulty. Careful examination was performed as the scope was gradually being withdrawn. Ileocecal valve and the appendiceal orifice were visualized and appeared normal. Prep was excellent. Mucosa of the cecum, ascending colon, transverse colon, descending colon, sigmoid colon, and rectum appeared normal. A diminutive 1 mm hepatic flexure polyp was removed with cold forcep polypectomy. Retroflexion was performed in the rectum and no lesions were seen, and low-grade internal hemorrhoids were noted. The patient tolerated the procedure well. IMPRESSION: Diminutive hepatic flexure polyp removed with cold forcep polypectomy. Internal hemorrhoids. RECOMMENDATIONS: Findings of this examination were discussed with the patient and his family. Okay to resume diet. Okay to resume medications. Await pathology from polypectomy. Recommend repeat colonoscopy in 5 years for family history of colon cancer.
[2020-10-04 10:53] VITALS: RESP 18
[2020-10-04] MEDS ORDERED: hydrALAZINE HCL 20 MG/ML 1 ML VIAL ONE ×2 (11:04→11:26)
[2020-10-04] MEDS ORDERED: hydrALAZINE HCL 20 MG/ML 1 ML VIAL IVP ONE ×2 (11:08→11:31)
[2020-10-04 11:56] VITALS: BP 142/95; PULSE 100
== END 2020-10-04 12:00 | disposition home or self-care (01) ==
LOC: ORWHC2ENDO 08:51
PROVIDERS: ATTEND Internal Medicine
DX: Z12.11 Encounter for screening for malignant neoplasm of colon (principal); D12.3 Benign neoplasm of transverse colon; K64.8 Other hemorrhoids; I25.10 Atherosclerotic heart disease of native coronary artery without angina pectoris; Z80.0 Family history of malignant neoplasm of digestive organs; Z72.0 Tobacco use; Z98.890 Other specified postprocedural states; Z95.5 Presence of coronary angioplasty implant and graft; Z79.82 Long term (current) use of aspirin; Z79.899 Other long term (current) drug therapy
CPT/HCPCS: 88305; 45380; J0360; J2704

== ENCOUNTER → 2023-11-14 | Outpatient (CLI) | payer OTHER ==
[2023-11-14 11:12] VITALS: BP 151/110; PULSE 90; RESP 18; TEMP 98.1
--- NOTE | 2023-11-14 11:35 | P.SLEEP ---
History of Present Illness DATE: 11/14/2023 CONSULTATION/NEW PATIENT EVALUATION HISTORY OF PRESENT ILLNESS/SLEEP-WAKE EVALUATION: 53-year-old gentleman had b een evaluated in the sleep center for possible obstructive sleep apnea hypopnea syndrome. SLEEP SCHEDULE: Usually sleep schedule from 11 PM to 6 AM 7 days a week. FALLING ASLEEP: No problems with falling asleep. DURING SLEEP: Patient has loud snoring, witnessed episodes of stop breathing during the sleep by his , multiple awakenings from sleep with gasping for air and choking. Positive history of dry mouth. No history of hypnogogical hallucinations, sleep paralysis, or cataplexy. DURING THE DAY/WAKE STATE: In the morning patient wake up tired, has episodes of irritability. [place] sleepiness scale is borderline 9. Patient may take 1 nap in the late morning time. PAST MEDICAL HISTORY: Hypertension, coronary artery disease, hyperlipidemia. PAST SURGICAL HISTORY: Stent insertion to coronary arteries, appendectomy. MEDICATIONS: Please see below. SOCIAL HISTORY: Please see below. FAMILY HISTORY: Hypertension, hyperlipidemia, snoring, cancer, diabetes mellitus. REVIEW OF SYSTEMS: Loud snoring, multiple awakenings from sleep with gasping for air and choking. No fevers. No double vision. No recent chest pain. No shortness of breath. No abdominal pain. No bleeding episodes. No blood in urine. No seizure episodes. PHYSICAL EXAMINATION: GENERAL: A pleasant patient without any distress. VITAL SIGNS: Please see below, weight 247.8 pounds, BMI 33.6. HEENT: PERRLA, EOMI. Evaluation of oropharynx showed tongue protrudes midline, low position of soft palate Mallampati 23. NECK: Supple. No JVD. Thyroid is not palpable. 19.5 inches in circumference. LUNGS: Clear to percussion and to auscultation. Good air exchange. No wheezing or rhonchi. HEART: S1, S2 regular. No murmurs, gallops or rubs. ABDOMEN: Soft and nontender. Bowel sounds are present. No organomegaly appreciated. EXTREMITIES: No clubbing or cyanosis. DEPARTMENT EDITOR: Awake, alert, and oriented x3. Cranial nerves 2 to 7 intact. There is no fasciculation or atrophy noted. No focal deficits observed. ASSESSMENT: 1. Loud snoring, witnessed episodes of stop breathing during the sleep, multiple awakenings from sleep, extremely wide neck 19.5 inches in circumference. Obstructive sleep apnea hypopnea syndrome. 2. Hypertension. 3. Coronary artery disease, status post heart attack and stent insertion. 4. Obesity, BMI 33.6. 5 hyperlipidemia. 6 . Status post appendectomy. PLAN: 1. Home sleep apnea test Polysomnography for evaluation of patient's breathing during sleep. 2. Following plan after reading sleep study. 3. Preferable position during sleep on the side. 4. No driving if patient feels any sleepiness. Patient is aware of civil and criminal liability for unsafe driving. 5. Sleep hygiene with regular sleep time for at least 7.5-8 hours. 6. Watching and losing weight. Thank you very much for referring this patient for consultation. Sincerely, Srinath Cline MD, PhD, FAASM. Diplomat of [place] [employer], Sleep Medicine Board by [place] [employer] [place] [employer] Joiner of [facility] [place] cc: Brad Mejia Jr DO Past Medical History Past Medical History: Coronary Artery Disease (CAD), Chest Pain / Angina, Hyperlipidemia, Hypertension, Myocardial Infarction ([place]) Additional Past Medical History / Comment(s): Told I'm on cholesterol med to help with my blood pressure, when they test me my cholesterol seems to be ok. Last Myocardial Infarction Date:: 05/20/16 History of Any Multi-Drug Resistant Organisms: None Reported Past Surgical History: Appendectomy, Heart Catheterization, Heart Catheterization With Stent, Orthopedic Surgery Additional Past Surgical History / Comment(s): nasal septal surgery X 3, Past Anesthesia/Blood Transfusion Reactions: No Reported Reaction Date of Last Stent Placement:: 05/20/16 Past Psychological History: No Psychological Hx Reported Smoking Status: Former smoker Past Alcohol Use History: Occasional Past Drug Use History: None Reported - Past Family History Father History Unknown: Yes Family Medical History: Cancer, Diabetes Mellitus, Hyperlipidemia, Hypertension Additional Family Medical History / Comment(s): - stomach cancer, snoring Medications and Allergies Home Medications Medication Instructions Recorded Confirmed Type Aspirin 81 mg PO DAILY #30 chew 05/22/16 11/14/23 Rx Atorvastatin [Lipitor] 80 mg PO HS #30 tab 05/22/16 11/14/23 Rx Nitroglycerin Sl Tabs [Nitrostat] 0.4 mg SUBLINGUAL Q5M PRN #25 tab 05/22/16 09/30/20 Rx carvediloL [Coreg*] 12.5 mg PO BID #60 tab 05/22/16 11/14/23 Rx Ezetimibe [Zetia] 10 mg PO DAILY 09/30/20 11/14/23 History lisinopriL [Zestril] 10 mg PO DAILY 09/30/20 11/14/23 History Allergies Allergy/AdvReac Type Severity Reaction Status Date / Time No Known Allergies Allergy Verified 09/30/20 13:45 Physical Exam Vitals: Vital Signs Temp Pulse Resp BP Pulse Ox 11/14/23 11:11 98.1 F 90 18 151/110 97 Intake and Output 11/13/23 11/14/23 11/14/23 22:59 06:59 14:59 Other: Weight 112.264 kg Sleep Note - Sleep Data ESS Total: 9 - Sleep Note Sleep Note: Temperature: 98.1 F Pulse Rate: 90 Respiratory Rate: 18 Blood Pressure: 151/110 SpO2: 97 Height: 6 ft Weight: 112.264 kg BMI: Neck Circumference: 19.5
== END ==
LOC: 3 N SLEEP 10:52
PROVIDERS: ATTEND Internal Medicine
DX: G47.33 Obstructive sleep apnea (adult) (pediatric) (principal); I10 Essential (primary) hypertension; I25.10 Atherosclerotic heart disease of native coronary artery without angina pectoris; E66.9 Obesity, unspecified; E78.5 Hyperlipidemia, unspecified; Z98.890 Other specified postprocedural states; Z68.33 Body mass index [BMI] 33.0-33.9, adult; Z95.5 Presence of coronary angioplasty implant and graft; Z86.74 Personal history of sudden cardiac arrest; Z87.891 Personal history of nicotine dependence; Z79.899 Other long term (current) drug therapy
CPT/HCPCS: 99211

== ENCOUNTER → 2023-12-12 | Outpatient (CLI) | payer OTHER ==
--- NOTE | 2023-12-27 08:06 | SLS ---
SLEEP STUDY PROCEDURE: Home sleep apnea test. DESCRIPTION OF PROCEDURE: Home sleep apnea test has been done following standard procedure with monitoring of respiratory events by pressure transducer, oximetry, and heart rate by pulse oximeter and movements of the chest by belt can. RESULTS: Recording done for 8 hours 37 minutes, monitoring time 8 hours 25 minutes. Respiratory channel showed 41 apneas and 241 hypopneas with total apnea-hypopnea index 33.5 with oxygen desaturation to 82%. Pulse rate in the range between 63 and 129, average 80 by computer calculation. IMPRESSION: Severe obstructive sleep apnea-hypopnea syndrome. PLAN: 1. CPAP titration for correction of respiratory abnormalities during sleep. 2. Watching and losing weight. 3. Sleep hygiene with regular time in bed for at least 8 hours. 4. No driving if feeling sleepiness. Thank you very much for allowing me to participate in management of your patient. Sincerely, Srinath Cline MD, PhD, FAASM Diplomat of [place] [employer] Sleep Medicine Board of [place] [employer] Patient Financial Representative of [facility] [place] MMODL / IJN: [id number] /
== END ==
LOC: 3 N SLEEP 17:00
PROVIDERS: ATTEND Internal Medicine

== ENCOUNTER 2024-03-17 05:38 | Day surgery (SDC) | payer OTHER ==
[2024-03-17] MEDS ORDERED: droPERidol 5 MG/2 ML VIAL IVP ONE (05:49)
[2024-03-17] MEDS ORDERED: LIDOCAINE 1% (10MG/ML) FOR IV START INTRADERMA PRN (05:49)
[2024-03-17] MEDS: IV FLUID CONTINUATION 1,000 ML IV ONE ×3 (06:09→09:42)
[2024-03-17] MEDS: LACTATED RINGERS 1,000 ML IV SCH (06:37)
[2024-03-17] MEDS: ONDANSETRON 4 MG/2 ML VIAL IVP ONE (06:47)
[2024-03-17] MEDS: ACETAMINOPHEN TAB 500 MG TAB PO PRN (06:48)
[2024-03-17] MEDS: DEXAMETHASONE SOD PHOSPHATE 4 MG/ML 1 ML VIAL IV ONE (06:48)
[2024-03-17] MEDS: MIDAZOLAM 2 MG/2 ML VIAL IV ONE ×2 (07:00→09:21)
[2024-03-17] MEDS ORDERED: HYDROmorphone 0.5 MG/0.5 ML SYRINGE IVP PRN (07:00)
[2024-03-17 07:05] LABS: Basophils % (A) 1 %; Eosinophils # (A) 0.3 k/uL (0-0.7); Eosinophils % (A) 3 %; HCT 50.4 % (39.0-53.0); HGB 16.7 gm/dL (13.0-17.5); Lymphocytes # (A) 2.5 k/uL (1.0-4.8); Lymphocytes % (A) 31 %; MCHC 33.1 g/dL (31.0-37.0); MCV 93.7 fL (80.0-100.0); Monocytes # (A) 0.6 k/uL (0-1.0); Monocytes % (A) 8 %; Neutrophils # (A) 4.4 k/uL (1.3-7.7); Neutrophils % (A) 55 %; Platelet Count 206 k/uL (150-450); RBC 5.38 m/uL (4.30-5.90); RDW 12.4 % (11.5-15.5)
--- NOTE | 2024-03-17 07:14 | P.GSHP ---
History of Present Illness H&P Date: 03/17/24 Chief Complaint: Incarcerated umbilical hernia 53-year-old male here for a repair incarcerated local hernia. Increasing in size gradually over the last several years. Present for about 20 years total. Mild soreness at times. No prior repair. Past Medical History Past Medical History: Coronary Artery Disease (CAD), Chest Pain / Angina, Hyperlipidemia, Hypertension, Myocardial Infarction (HI), Sleep Apnea/CPAP/BIPAP Additional Past Medical History / Comment(s): uses CPAP Last Myocardial Infarction Date:: 05/20/16 History of Any Multi-Drug Resistant Organisms: None Reported Past Surgical History: Appendectomy, Heart Catheterization, Heart Catheterization With Stent, Orthopedic Surgery Additional Past Surgical History / Comment(s): nasal septal surgery X 3; right shoulder surg Past Anesthesia/Blood Transfusion Reactions: Previous Problems w/ Anesthesia Additional Past Anesthesia/Blood Transfusion Reaction / Comment(s): pt states had reaction/hard time coming out of anesthesia age 13 after appendectomy but states he was told this anesthesia is not given anymore. Date of Last Stent Placement:: 05/20/16 Smoking Status: Former smoker - Past Family History Father History Unknown: Yes Family Medical History: Cancer, Diabetes Mellitus, Hyperlipidemia, Hypertension Additional Family Medical History / Comment(s): - stomach cancer, snoring Mother Family Medical History: No Reported History Medications and Allergies Home Medications Medication Instructions Recorded Confirmed Type Aspirin 81 mg PO DAILY #30 chew 05/22/16 03/17/24 Rx Nitroglycerin Sl Tabs [Nitrostat] 0.4 mg SUBLINGUAL Q5M PRN #25 tab 05/22/16 03/17/24 Rx Ezetimibe [Zetia] 10 mg PO DAILY 09/30/20 03/17/24 History lisinopriL [Zestril] 10 mg PO DAILY 09/30/20 03/17/24 History Atorvastatin [Lipitor] 80 mg PO DAILY 03/13/24 03/17/24 History carvediloL [Coreg*] 12.5 mg PO DAILY 03/13/24 03/17/24 History Allergies Allergy/AdvReac Type Severity Reaction Status Date / Time No Known Allergies Allergy Verified 03/17/24 06:36 Surgical - Exam Vital Signs Temp Pulse Resp BP Pulse Ox 97.4 F L 70 16 139/97 99 03/17/24 06:19 03/17/24 06:19 03/17/24 06:19 03/17/24 06:19 03/17/24 06:19 Physical exam: General: Well-developed, well-nourished HEENT: Normocephalic, sclerae nonicteric Abdomen: Nontender, nondistended, incarcerate umbilical hernia Extremities: No edema Neuro: Alert and oriented Results - Labs 03/17/24 06:53 Assessment and Plan (1) Incarcerated umbilical hernia Narrative/Plan: 53-year-old male with incarcerated umbilical hernia. Will proceed with open repair with mesh at this time. Risks of bleeding, infection, recurrence, bladder and bowel injury, numbness, nerve injury were discussed with the patient. The patient understands and wishes to proceed. Current Visit: Yes Status: Acute Code(s): K42.0 - UMBILICAL HERNIA WITH OBSTRUCTION, WITHOUT GANGRENE SNOMED Code(s): 669200184
[2024-03-17] MEDS: HEPARIN SODIUM,PORCINE 5,000 UNIT/ML 1 ML VIAL SQ PRN (07:20)
[2024-03-17] MEDS ORDERED: DEXAMETHASONE SOD PHOSPHATE 4 MG/ML 1 ML VIAL ONE (07:25)
[2024-03-17] MEDS ORDERED: VASOPRESSIN 20 UNIT/ML 1 ML VIAL ONE (07:25)
[2024-03-17] MEDS ORDERED: fentaNYL (PF) 50 MCG/ML 2 ML AMP ONE (07:25)
[2024-03-17] MEDS ORDERED: SUCCINYLCHOLINE CHLORIDE 200 MG/10 ML VIAL IV ONE (07:25)
[2024-03-17] MEDS ORDERED: WATER FOR INJECTION, STERILE 10 ML VIAL IV ONE (07:25)
[2024-03-17] MEDS ORDERED: PHENYLEPHRINE 10 MG/ML VIAL ONE (07:25)
[2024-03-17] MEDS ORDERED: MIDAZOLAM 2 MG/2 ML VIAL ONE (07:25)
[2024-03-17] MEDS ORDERED: ROPIVACAINE 5 MG/ML 30 ML VIAL ONE (07:25)
[2024-03-17] MEDS ORDERED: LIDOCAINE 1% INJ 10MG/ML (20 ML MDV) ONE (07:25)
[2024-03-17] MEDS ORDERED: PROPOFOL 10 MG/ML 20 ML VIAL IV ONE (07:25)
--- NOTE | 2024-03-17 07:30 | P.ANPRN ---
Procedure Note - Anesthesia - Nerve Block Performed Bilateral Erector Spinae Single Time Out Performed: Yes Date of Procedure: 03/17/24 Procedure Start Time: 06:59 Procedure Stop Time: 07:04 Location of Patient: PreOp Indication: Acute Post-Operative Pain, Analgesia, Requested by Surgeon Sedation Type: Sedate with meaningful contact maintained Preparation: Sterile Prep Position: Prone Catheter: None Needle Types: Pajunk Needle Gauge: 21 Ultrasound used to visualize needle placement: Yes Ultrasound used to observe medication spread: Yes Injectate: 0.5% Ropivacaine (see comment for volume) (Ropiv 20ml+Decadron 3mg, Needle level T10------ Each side.)
[2024-03-17 07:38] LABS: African American GFR (CKD) >90 (>60 ml/min/1.73 sqM); Anion Gap 9 mmol/L; Blood Urea Nitrogen 14 mg/dL (9-20); Calcium 8.3 mg/dL (8.4-10.2); Carbon Dioxide 24 mmol/L (22-30); Chloride 106 mmol/L (98-107); Glucose 99 mg/dL (74-99); Non-African American GFR(CKD) >90 (>60 ml/min/1.73 sqM); Sodium 139 mmol/L (137-145)
[2024-03-17 07:50] LABS: Potassium 4.5 mmol/L (3.5-5.1)
[2024-03-17] MEDS: BUPIVACAINE (PF) 0.25% 30 ML VIAL SQ ONE ×3 (07:51→08:21)
--- NOTE | 2024-03-17 08:43 | P.OP ---
Date of Procedure: 03/17/24 Procedure(s) Performed: PREOPERATIVE DIAGNOSIS: Incarcerated umbilical hernia POSTOPERATIVE DIAGNOSIS: Same PROCEDURE: Open repair incarcerated umbilical hernia with mesh SURGEON: Dr. Mckeon ANESTHESIA: General OPERATIVE PROCEDURE DETAILS: The patient was placed in the operating table in the supine position. A curvilinear supraumbilical incision was made using the scalpel. The subcutaneous tissues were dissected bluntly and with cautery. The hernia sac was identified. The umbilical attachments to the fascia were divided using electrocautery. The hernia sac was reduced back into the preperitoneal space. The defect in the fascia measured 1.5 x 1 cm. The fat overlying the fascia was dissected. No additional defects were seen. The preperitoneal space was then dissected using blunt dissection and electrocautery. The 4.3 cm ventral ex mesh was placed beneath the fascia and sutured in place using trans- fascial 0 Ethibond sutures. The defect was closed using interrupted vest over pants 0 Ethibond mattress sutures. The subcutaneous tissues were reapproximated using inverted 2-0 & 3-0 Vicryl sutures. The umbilicus was tacked back down to the fascia using a 2-0 Vicryl suture. The skin was closed using 4-0 Monocryl sutures. Skin glue and sterile dressings were then applied. HERNIA CHARACTERISTICS: Length: 1 cm Width: 1.5 cm Type: Incarcerated umbilical TYPE OF MESH USED: Ventralex 4.3 cm LOCATION OF MESH: [place] FIXATION: Transfascial 0 Ethibond PREOPERATIVE DISCUSSION ON SMOKING CESSASTION: Yes PREOPERATIVE DISCUSSION ON MORBID OBESITY: Yes PREOPERATIVE DISCUSSION ON APPROPRIATE USE OF NARCOTIC USE: Yes PREOPERATIVE EDUCATION: Multi Modal, Smoking Cessation and Weight Loss with BMI over 35. DISPOSITION: Stable to recovery room
[2024-03-17] MEDS: PHENYLEPHRINE 10 MG/ML VIAL IV ONE (09:34)
[2024-03-17 10:07] VITALS: TEMP 97.9
[2024-03-17] MEDS ORDERED: ACETAMINOPHEN TAB 325 MG TAB PO SCH (11:00)
[2024-03-17 11:39] VITALS: BP 130/87; PULSE 75; RESP 18
[2024-03-17] MEDS ORDERED: IBUPROFEN 600 MG TAB PO SCH (14:00)
== END 2024-03-17 11:52 | disposition home or self-care (01) ==
LOC: OR 05:38
PROVIDERS: ATTEND Surgery
DX: K42.0 Umbilical hernia with obstruction, without gangrene (principal); E78.5 Hyperlipidemia, unspecified; I10 Essential (primary) hypertension; G89.18 Other acute postprocedural pain; I25.2 Old myocardial infarction; I25.119 Atherosclerotic heart disease of native coronary artery with unspecified angina pectoris; G47.33 Obstructive sleep apnea (adult) (pediatric); Z87.891 Personal history of nicotine dependence; Z90.49 Acquired absence of other specified parts of digestive tract; Z95.5 Presence of coronary angioplasty implant and graft; Z79.899 Other long term (current) drug therapy; Z98.890 Other specified postprocedural states; Z79.82 Long term (current) use of aspirin
CPT/HCPCS: 94002; 80048; 85025; 49592; 64999; J2250; J1644; J1100; J0690; J2405; J2704; J2371; J0665

== ENCOUNTER → 2024-03-27 | Outpatient (CLI) | payer OTHER ==
[2024-03-27 13:45] VITALS: BP 135/99; PULSE 104; RESP 16; TEMP 97.9
--- NOTE | 2024-03-27 14:07 | P.PROGSL ---
Subjective DATE: 03/27/2024 FOLLOW UP VISIT. Patient with obstructive sleep apnea hypopnea syndrome return to sleep center for follow-up visit. Recently patient had sleep study which documented obstructive sleep apnea hypopnea syndrome. Patient was initiated on PAP therapy and today is first visit after treatment was started. Patient was able to use PAP equipment every night for the whole night. Patient sometimes has some problems related to fullface mask. He knows how to adjust humidity and just to the top. [place] sleepiness scale is 9, which is borderline. I checked information from PAP unit. PAP unit pressure 5-15, average 10.4 cm H2O. Usage is 100% and 70% for more then 4 hours, average 4.5 hours per night. Leak is 3.6 l/m, which is in acceptable range. Apnea Hypopnea Index is 0.5, which is normal. MEDICATIONS: Have been reviewed, please see below During physical exam: GENERAL: A pleasant patient without any distress. VITAL SIGNS: Please see below HEENT: PERRLA, EOMI.low position of soft palate, Mallapati 23. NECK: Supple. No JVD. LUNGS: Clear to percussion and to auscultation. Good air exchange. No wheezing or rhonchi. HEART: S1, S2 regular. ABDOMEN: Soft and nontender.[] EXTREMITIES: No clubbing or cyanosis. LOAD CHECKER: Awake, alert, and oriented x3. No focal deficit. Impressions: 1. Obstructive sleep apnea-hypopnea syndrome. Patient demonstrated god compliance with treatment, benefiting from treatment. 2. Hypertension. 3. Coronary artery disease, status post heart attack and stent insertion. 4. Hyperlipidemia. 5. Mild obesity. 6. Status post appendectomy. Plan: 1. Continue using PAP equipment every night for the whole night. 2. To change air filter at least 1-2 times per month. 3. PAP unit should stay lower then position of the head. 4. Advised patient to remove all remaining water from humidifier canister daily and make it dry after each usage. Refill canister with fresh distilled water before each usage. 5. Sleep hygiene with regular time in bed for at least 8 hours. 6. Precautions related to driving. No driving if feel any sleepiness. 7. I will maintain prescription for PAP supplies including mask, tube, filters. 8. Follow up visit in 6 months or earlier if patient has any problems. 9. Watching weight. Thank you very much for allowing me to participate in the management of your patient. Srinath Cline MD, PhD, FAASM. Diplomat of [employer] [employer], Sleep Medicine Board by [employer] [facility] [place] Objective - Vital Signs Vital Signs: Vital Signs Temp 97.9 F 03/27/24 13:44 Pulse 104 H 03/27/24 13:44 Resp 16 03/27/24 13:44 BP 135/99 03/27/24 13:44 Pulse Ox 9 L 03/27/24 13:44 FiO2 Intake & Output 03/26/24 03/27/24 03/27/24 18:59 06:59 18:59 Weight 112.037 kg Home Medications: Home Medications Medication Instructions Recorded Confirmed Type Aspirin 81 mg PO DAILY #30 chew 05/22/16 03/17/24 Rx Nitroglycerin Sl Tabs [Nitrostat] 0.4 mg SUBLINGUAL Q5M PRN #25 tab 05/22/16 03/17/24 Rx Ezetimibe [Zetia] 10 mg PO DAILY 09/30/20 03/17/24 History lisinopriL [Zestril] 10 mg PO DAILY 09/30/20 03/17/24 History Atorvastatin [Lipitor] 80 mg PO DAILY 03/13/24 03/17/24 History carvediloL [Coreg*] 12.5 mg PO DAILY 03/13/24 03/17/24 History oxyCODONE HCL [OxyIR] 5 mg PO Q6H PRN 3 Days #6 tab 03/17/24 Rx
== END ==
LOC: 3 N SLEEP 13:14
PROVIDERS: ATTEND Internal Medicine
DX: G47.33 Obstructive sleep apnea (adult) (pediatric) (principal); I10 Essential (primary) hypertension; I25.10 Atherosclerotic heart disease of native coronary artery without angina pectoris; E78.5 Hyperlipidemia, unspecified; E66.9 Obesity, unspecified; F17.200 Nicotine dependence, unspecified, uncomplicated; Z95.5 Presence of coronary angioplasty implant and graft; Z86.74 Personal history of sudden cardiac arrest; Z98.890 Other specified postprocedural states; Z99.89 Dependence on other enabling machines and devices; Z88.8 Allergy status to other drugs, medicaments and biological substances; Z79.899 Other long term (current) drug therapy; Z68.31 Body mass index [BMI] 31.0-31.9, adult
CPT/HCPCS: 99212